=== PATIENT | male | born 1960 | race Two or more races ===

== ENCOUNTER 2018-11-04 11:42 | Inpatient (IN) | payer MEDICAID ==
[~2018-11-04] VITALS: Ht 167.6 cm; Wt 91.2 kg
[2018-11-04 12:31] LABS: BASOPHILS % 0.7 % (0.0-2.0); EOSINOPHILS % 3.2 % (0.0-5.0); HEMATOCRIT. 39.6 % (42.0-52.0); HEMOGLOBIN. 13.9 g/dL (14.0-18.0); LYMPHOCYTES % 19.3 % (20.0-50.0); MEAN CORPUSCULAR HEMOGLOBIN 30.5 pg (28.0-32.0); MEAN CORPUSCULAR VOLUME 86.5 fL (80.0-94.0); MEAN PLATELET VOLUME 6.8 fl (7.4-10.4); NEUTROPHILS % 69.8 % (40.0-76.0); PLATELET 246 x1000/uL (130-400); RED BLOOD CELL COUNT 4.57 mill/uL (4.7-6.1); RED CELL DISTRIBUTION WIDTH 13.5 % (11.6-14.6)
[2018-11-04 12:38] LABS: CHLORIDE 109 mEq/L (98-107)
[2018-11-04] MEDS ORDERED: CLONIDINE 0.1MG TABLET PO PRN (15:30)
[2018-11-04] MEDS ORDERED: IPRATROPIUM/ALBUTEROL 0.5-3(2.5)MG/3ML NEB HHN PRN (15:30)
[2018-11-04] MEDS ORDERED: ONDANSETRON HCL 4MG/2ML INJ IV PRN (15:30)
[2018-11-04] MEDS ORDERED: ENOXAPARIN 40MG/0.4ML SYR SUBCUT SCH (15:30)
[2018-11-04] MEDS ORDERED: DOCUSATE SODIUM 100MG CAPSULE PO PRN (15:30)
[2018-11-04] MEDS ORDERED: ACETAMINOPHEN 325MG TABLET PO PRN (15:30)
[2018-11-04] MEDS ORDERED: MAGNESIUM/ALUMINUM HYDROXIDE/SIMETHICONE 30ML UDC PO PRN (15:30)
[2018-11-04] MEDS ORDERED: DIPHENHYDRAMINE 50MG/ML VIAL IV PRN (15:30)
[2018-11-04 16:39] LABS: PHOSPHORUS 3.6 mg/dL (2.5-4.9)
[2018-11-04 20:30] VITALS: BP 144/63
[2018-11-04] MEDS: GUAIFENESIN 200MG/10ML SUGAR FREE UDC PO PRN (20:45)
[2018-11-04] MEDS: ENOXAPARIN 30MG/0.3ML SYR SUBCUT SCH (20:45)
[2018-11-04] MEDS: HYDROCODONE/ACETAMINOPHEN 5/325MG TABLET PO PRN (21:07)
[2018-11-05] MEDS ORDERED: GABA250S4 PO (02:04)
[2018-11-05] MEDS ORDERED: METF100092 PO (02:04)
[2018-11-05] MEDS ORDERED: GUAI600T26 PO (02:05)
[2018-11-05] MEDS: GUAIFENESIN 200MG/10ML SUGAR FREE UDC PO PRN ×3 (02:16→18:12)
[2018-11-05] MEDS ORDERED: DEXTROSE 50% WATER 50ML SYRINGE IV PRN (03:00)
[2018-11-05] MEDS: HYDROCODONE/ACETAMINOPHEN 5/325MG TABLET PO PRN ×2 (06:59→17:46)
[2018-11-05 07:07] LABS: BASOPHILS % 0.6 % (0.0-2.0); EOSINOPHILS % 3.1 % (0.0-5.0); HEMATOCRIT. 38.6 % (42.0-52.0); HEMOGLOBIN. 13.3 g/dL (14.0-18.0); LYMPHOCYTES % 29.1 % (20.0-50.0); MEAN CORPUSCULAR HEMOGLOBIN 30.1 pg (28.0-32.0); MEAN CORPUSCULAR VOLUME 87.4 fL (80.0-94.0); MEAN PLATELET VOLUME 7.4 fl (7.4-10.4); MONOCYTES % 6.2 % (2.0-8.0); PLATELET 211 x1000/uL (130-400); RED BLOOD CELL COUNT 4.41 mill/uL (4.7-6.1); RED CELL DISTRIBUTION WIDTH 13.5 % (11.6-14.6)
[2018-11-05] MEDS: BLOOD SUGAR DIAGNOSTIC STRIP TEST SCH ×4 (07:40→20:15)
[2018-11-05 08:00] VITALS: BP 118/78
[2018-11-05 08:54] LABS: CHLORIDE 108 mEq/L (98-107)
[2018-11-05 09:11] LABS: HDL CHOLESTEROL 24 mg/dL (40-59)
[2018-11-05 09:16] LABS: LDL CHOLESTEROL 89 mg/dL (5-100)
[2018-11-05] MEDS: ENOXAPARIN 30MG/0.3ML SYR SUBCUT SCH ×2 (10:01→20:16)
[2018-11-05 12:00] VITALS: BP 115/67
[2018-11-05] MEDS: INSULIN LISPRO 100 UNITS/ML SUBCUT SCH ×3 (12:24→20:18)
[2018-11-05 16:00] VITALS: BP 125/58
[2018-11-05] MEDS: GABAPENTIN 400MG CAPSULE PO SCH (17:57)
[2018-11-05] MEDS: PANTOPRAZOLE 40MG DR TABLET PO SCH (17:57)
[2018-11-05] MEDS: METFORMIN HCL 500MG TABLET PO SCH (18:10)
[2018-11-05 20:00] VITALS: BP 117/48
[2018-11-05] MEDS ORDERED: ATORVASTATIN CALCIUM 40MG TABLET PO SCH (21:00)
[2018-11-06] VITALS: BP 106/47
[2018-11-06] MEDS: GUAIFENESIN 200MG/10ML SUGAR FREE UDC PO PRN ×2 (00:34→04:40)
[2018-11-06] MEDS: HYDROCODONE/ACETAMINOPHEN 5/325MG TABLET PO PRN ×4 (00:35→16:51)
[2018-11-06 04:00] VITALS: BP 100/47
[2018-11-06 08:00] VITALS: BP 91/41
[2018-11-06] MEDS: INSULIN LISPRO 100 UNITS/ML SUBCUT SCH ×3 (08:10→17:26)
[2018-11-06] MEDS: METFORMIN HCL 500MG TABLET PO SCH ×2 (08:25→17:25)
[2018-11-06] MEDS: PANTOPRAZOLE 40MG DR TABLET PO SCH (08:25)
[2018-11-06] MEDS: GABAPENTIN 400MG CAPSULE PO SCH ×2 (08:26→16:39)
[2018-11-06] MEDS: BLOOD SUGAR DIAGNOSTIC STRIP TEST SCH ×3 (08:36→17:26)
[2018-11-06] MEDS: ENOXAPARIN 30MG/0.3ML SYR SUBCUT SCH (08:36)
[2018-11-06 12:00] VITALS: BP 102/56
[2018-11-06 16:00] VITALS: BP 109/60
[2018-11-06] MEDS ORDERED: MAGNESIUM HYDROXIDE 400MG/5ML 30ML UDC PO PRN (16:15)
[2018-11-06] MEDS ORDERED: POLYETHYLENE GLYCOL 3350 (17GM) 1 DOSE PACK PO SCH (16:45)
[2018-11-06] MEDS ORDERED: LIP40 PO (16:53)
[2018-11-06] MEDS ORDERED: METF500T PO (16:53)
[2018-11-06 17:45] VITALS: BP 109/76
[2018-11-07] MEDS ORDERED: FAMOTIDINE 20MG TABLET PO SCH (09:00)
== END 2018-11-06 18:52 | disposition home or self-care (01) | DRG 243 ==
LOC: ER 11:42 → 7WST 14:34 → EDBEDREQTM 14:37 → EDBEDREQ 14:37 → ENRESERV 15:56
PROVIDERS: ADMIT Internal Medicine; ATTEND Internal Medicine
DX: K21.9 Gastro-esophageal reflux disease without esophagitis (principal); I27.20 Pulmonary hypertension, unspecified; E11.65 Type 2 diabetes mellitus with hyperglycemia; I36.1 Nonrheumatic tricuspid (valve) insufficiency; D64.9 Anemia, unspecified; I69.354 Hemiplegia and hemiparesis following cerebral infarction affecting left non-dominant side; E66.9 Obesity, unspecified; I10 Essential (primary) hypertension; E78.1 Pure hyperglyceridemia; E78.5 Hyperlipidemia, unspecified; F17.200 Nicotine dependence, unspecified, uncomplicated; K62.5 Hemorrhage of anus and rectum; J44.9 Chronic obstructive pulmonary disease, unspecified; Z68.32 Body mass index [BMI] 32.0-32.9, adult; Z79.84 Long term (current) use of oral hypoglycemic drugs
CPT/HCPCS: 36415; 71045; 80061; 82962; 83735; 83880; 84100; 84443; 84484; 93005; 93306; 93970; 96372; 99285; J1650; J1815

== ENCOUNTER 2020-11-24 19:59 | Emergency (ER) | payer MEDICAID ==
[~2020-11-24] VITALS: Ht 172.7 cm; Wt 100.0 kg
[~2020-11-24 19:59] MED LIST: GABA250S4 PO; GUAI600T26 PO; LIP40 PO; METF500T PO
[2020-11-24 20:17] VITALS: BP 140/85
[2020-11-24] MEDS ORDERED: SODIUM CHLORIDE 0.9% 1,000 ML IV ONE (20:30)
== END 2020-11-24 20:48 | disposition left against medical advice (07) ==
LOC: ER 19:59
DX: R42 Dizziness and giddiness (principal); Z72.89 Other problems related to lifestyle; I45.10 Unspecified right bundle-branch block
CPT/HCPCS: 93005; 99283; J7030